=== PATIENT | male | born 1960 | race Caucasian/White ===

== ENCOUNTER 2023-12-23 05:12 | Day surgery (SDC) | payer BC ==
[2023-12-19 11:14] VITALS: BMI 33.0
[2023-12-23] MEDS ORDERED: LIDOCAINE HCL 1%, 10 MG/ML (20ML VIAL) ONE (07:14)
[2023-12-23] MEDS ORDERED: BUPIVACAINE HCL/PF 0.5% (5MG/ML) 10 ML VIAL ONE (07:15)
[2023-12-23] MEDS ORDERED: DEXAMETHASONE SOD PHOSPHATE 4 MG/1 ML VIAL ONE (07:24)
[2023-12-23] MEDS ORDERED: MIDAZOLAM HCL 2 MG/2 ML SINGLE DOSE VIAL ONE (08:07)
[2023-12-23] MEDS ORDERED: LIDOCAINE HCL/PF 2% SDV 5ML VIAL ONE (08:07)
[2023-12-23] MEDS ORDERED: PROPOFOL 20 ML ONE (08:07)
[2023-12-23] MEDS ORDERED: FENTANYL CITRATE/PF 50 MCG/ML VIAL ONE ×2 (08:07→12:22)
[2023-12-23] MEDS: ceFAZolin SODIUM 1 GM VIAL IVPB ONE (08:40)
[2023-12-23] MEDS: LIDOCAINE HCL 1%, 10 MG/ML (20ML VIAL) INF ONE (08:49)
[2023-12-23] MEDS ORDERED: PROMETHAZINE HCL 25 MG/1 ML VIAL IVPB PRN (10:38)
[2023-12-23] MEDS ORDERED: ONDANSETRON 4 MG/2 ML VIAL IVPUSH PRN (10:38)
[2023-12-23] MEDS ORDERED: oxyCODONE HCL 5 MG TABLET PO PRN ×2 (10:38)
[2023-12-23] MEDS ORDERED: LACTATED RINGERS SOLUTION 1,000 ML IV SCH (10:45)
[2023-12-23] MEDS: BUPIVACAINE HCL/PF 0.5% (5 MG/ML) 30 ML VIAL IJ ONE (11:18)
[2023-12-23] MEDS ORDERED: ACETAMINOPHEN INJECTION 100 ML IVPB ONE (11:44)
[2023-12-23] MEDS: ACETAMINOPHEN 1000 MG/100 ML BAG IVPB ONE ×2 (11:48→12:58)
[2023-12-23 12:58] VITALS: RESP 20
[2023-12-23] MEDS ORDERED: oxyCODONE HCL 5 MG TABLET ONE (14:40)
[2023-12-23] MEDS: oxyCODONE HCL 5 MG TABLET PO ONE (14:45)
[2023-12-23] MEDS: OXYBUTYNIN CHLORIDE 5 MG TABLET PO ONE (14:45)
[2023-12-23 15:37] VITALS: BP 161/90; PULSE 74; TEMP 97.7
== END 2023-12-23 15:20 | disposition home or self-care (01) ==
LOC: JASU-SURG 05:12
PROVIDERS: ATTEND Podiatrist Foot Surgery
PROC: 0QBN0ZZ Excision of Right Metatarsal, Open Approach (ICD-10-PCS; 2023-12-23)
PROC: 0SGM04Z Fusion of Right Metatarsal-Phalangeal Joint with Internal Fixation Device, Open Approach (ICD-10-PCS; principal; 2023-12-23 08:00)
DX: M20.11 Hallux valgus (acquired), right foot (principal); R22.40 Localized swelling, mass and lump, unspecified lower limb
CPT/HCPCS: 28296; 28297; C1776; 73630-TC-LT; 76000-TC-FY; 88305-TC; 88311-TC; 94760; 97116-GP; C1713; C1889; J0131